=== PATIENT | male | born 1985 | race Caucasian/White ===

== ENCOUNTER 2017-07-23 19:56 | Emergency (ER) | payer SELFPAY ==
[~2017-07-23] VITALS: Ht 175.3 cm; Wt 88.5 kg
--- NOTE | 2017-07-23 19:56 | NUR ---
REFUSED TO BE SEEN BY ER MD. STATES "I WANNA GO HOME SO TAKE THIS IV OUT OF MY HAND". DR. FRENCH AWARE. IV REMOVED
== END 2017-07-23 20:09 | disposition left against medical advice (07) ==
LOC: ER 19:57
DX: Z53.21 Procedure and treatment not carried out due to patient leaving prior to being seen by health care provider (principal)
CPT/HCPCS: A4606; Z7610